=== PATIENT | female | born 1990 | race Asian ===

== ENCOUNTER 2016-07-10 18:54 | Emergency (ER) | payer OTHER | END 2016-07-10 20:00 | disposition home or self-care (01) | LOC: ED 18:54 | DX: R11.2 Nausea with vomiting, unspecified (principal) | CPT/HCPCS: 99281 ==

== ENCOUNTER 2017-08-20 17:38 | Emergency (ER) | payer OTHER ==
[~2017-08-20] VITALS: Ht 177.8 cm; Wt 78.5 kg
== END 2017-08-20 18:01 | disposition home or self-care (01) ==
LOC: ED 17:38
DX: H60.502 Unspecified acute noninfective otitis externa, left ear (principal)
CPT/HCPCS: 99281

== ENCOUNTER 2017-12-24 06:16 | Emergency (ER) | payer OTHER ==
[~2017-12-24] VITALS: Ht 157.5 cm; Wt 80.7 kg
[2017-12-24 06:34] VITALS: TEMP 97.6
[2017-12-24 07:20] LABS: PLATELET COUNT 237 K/uL (152-353)
[2017-12-24 07:26] LABS: POTASSIUM 3.6 mmol/L (3.6-5.2)
[2017-12-24 07:45] VITALS: BP 156/81
== END 2017-12-24 08:00 | disposition home or self-care (01) ==
LOC: ED 06:16
DX: K29.70 Gastritis, unspecified, without bleeding (principal)
CPT/HCPCS: 36415; 74022; 80053; 81000; 85027; 96374; 96375; 99284; J1885; J2405

== ENCOUNTER 2018-06-10 11:37 | Emergency (ER) | payer OTHER ==
[~2018-06-10] VITALS: Ht 157.5 cm; Wt 80.7 kg
[2018-06-10 12:26] LABS: PLATELET COUNT 282 K/uL (152-353)
[2018-06-10 12:43] LABS: POTASSIUM 5.3 mmol/L (3.6-5.2)
[2018-06-10 13:15] VITALS: BP 125/81; TEMP 97.6
== END 2018-06-10 13:15 | disposition home or self-care (01) ==
LOC: ED 11:37
DX: N83.202 Unspecified ovarian cyst, left side (principal)
CPT/HCPCS: 36415; 80053; 85027; 96365; 96374; 96375; 99284; J1885; J2405; J7120

== ENCOUNTER 2018-12-25 22:23 | Emergency (ER) | payer OTHER ==
[~2018-12-25] VITALS: Ht 157.5 cm; Wt 80.7 kg
[2018-12-26 01:05] VITALS: BP 144/87; TEMP 97.9
== END 2018-12-26 01:06 | disposition home or self-care (01) ==
LOC: ED 22:23
DX: M25.561 Pain in right knee (principal); M25.562 Pain in left knee
CPT/HCPCS: 99282